=== PATIENT | male | born 1930 | race Caucasian/White ===

== ENCOUNTER 2018-11-22 12:42 | Emergency (ER) | payer MEDICARE, OTHER ==
[~2018-11-22] VITALS: Ht 177.8 cm; Wt 106.8 kg
[2018-11-22 13:56] LABS: BASOPHILS % (AUTO) 0.7 % (0-1); EOSINOPHILS # (AUTO) 0.3 X10'3 (0-0.9); HEMATOCRIT 41.8 % (42.0-52.0); HEMOGLOBIN 13.8 g/dl (14.0-17.9); LYMPHOCYTES # (AUTO) 1.3 X10'3 (1.1-4.8); MEAN CORPUSCULAR HGB CONC 32.9 % (33.0-36.5); MEAN CORPUSCULAR VOLUME 94.4 FL (78-98); MEAN PLATELET VOLUME 11.4 FL (7.4-10.4); MONOCYTES # (AUTO) 0.4 X10'3 (0-0.9); MONOCYTES % (AUTO) 8.5 % (2-12); NEUTROPHILS % (AUTO) 59.8 % (42-75); PLATELET COUNT 176 X10'3 (140-440); RED BLOOD COUNT 4.43 X10'6 (4.70-6.10); RED CELL DISTRIBUTION WIDTH 14.7 % (11.5-14.5)
[2018-11-22 14:14] LABS: INR 1.1 INR; PARTIAL THROMBOPLASTIN TIME 25 SECONDS (22-32); PROTHROMBIN TIME 11.4 SECONDS (9.0-12.0)
[2018-11-22 14:15] LABS: ALANINE AMINOTRANSFERASE 38 U/L (12-78); ALBUMIN 3.4 G/DL (3.4-5.0); ALBUMIN/GLOBULIN RATIO 0.9 (1.1-1.5); ANION GAP 9 (8-16); ASPARTATE AMINO TRANSFERASE 21 U/L (10-37); BILIRUBIN,TOTAL 0.9 MG/DL (0.1-1.0); BLOOD UREA NITROGEN 10 MG/DL (7-18); BUN/CREATININE RATIO 10.8 (5.4-32.0); CALCIUM 8.8 MG/DL (8.5-10.1); CHLORIDE 103 MMOL/L (99-107); CREATININE 0.93 MG/DL (0.60-1.10); GLUCOSE 83 MG/DL (70-104); POTASSIUM 4.2 MMOL/L (3.5-5.1); SODIUM 143 MMOL/L (135-145); TOTAL CARBON DIOXIDE 31.5 MMOL/L (24-32); TOTAL PROTEIN 7.1 G/DL (6.4-8.2); eGFR 77 ML/MIN
[2018-11-22 14:16] LABS: ALKALINE PHOSPHATASE 118 IU/L (46-116)
[2018-11-22 14:28] VITALS: BP 136/87
--- NOTE | 2018-11-22 14:49 | NUR ---
MRI CALLED, UNSURE IF THEY CAN DO MRI DEPENDING ON PT'S PACEMAKER
[2018-11-22] MEDS ORDERED: CEPH500C5 PO (15:52)
[2018-11-22] MEDS ORDERED: POTA20TA19 PO (15:52)
[2018-11-22] MEDS ORDERED: FURO-150 PO (15:52)
[2018-11-22] MEDS ORDERED: BACDS PO (15:52)
== END 2018-11-22 16:27 | disposition home or self-care (01) ==
LOC: ER 12:42
DX: R60.0 Localized edema (principal); L97.529 Non-pressure chronic ulcer of other part of left foot with unspecified severity; Z98.890 Other specified postprocedural states; Z95.0 Presence of cardiac pacemaker; Z79.899 Other long term (current) drug therapy
CPT/HCPCS: 36415; 71045; 73630; 80053; 83880; 84145; 84484; 85025; 85610; 85651; 85730; 86140; 93005; 99284